=== PATIENT | female | born 1970 | race Caucasian/White ===

== ENCOUNTER → 2019-10-25 11:27 | Outpatient (BNVA) | payer OTHER, SELFPAY | PROVIDERS: Visit Provider Nurse Practitioner | DX: S92.512A Displaced fracture of proximal phalanx of left lesser toe(s), initial encounter for closed fracture (principal); X58.XXXA Exposure to other specified factors, initial encounter | CPT/HCPCS: 73630 ==

== ENCOUNTER 2019-11-01 14:40 | Inpatient (IN) | payer OTHER, SELFPAY ==
[2019-11-01] VITALS (10 sets, daily range): BP systolic 132–162; BP diastolic 95–106; PULSE 86–108; RESP 16–18; TEMP 36.5–36.9; O2SAT 95–98; BMI 30.1
--- NOTE | 2019-11-01 15:13 | ED_ITS ---
HPI - Abdominal Pain General: Chief Complaint: Abdominal Pain Stated Complaint: abd pain, N/V, chills Time Seen by Provider: 11/01/19 15:08 Source: patient Mode of arrival: ambulatory Limitations: no limitations History of Present Illness: HPI narrative: 48-year-old female patient with a history of alcoholic pancreatitis presents to the emergency department with epigastric pain that started early this morning. She tried to manage it at home but the pain was getting worse. She states she has been drinking a little more in the last few days. She drinks about 3 to 4 cans of the hard lemonade. She has associated nausea and vomiting. MD elicited complaint: abdominal pain Pertinent past history: other (Pancreatitis) Onset (ago): hour(s) (8) Pain Consistency: constant Location: Epigastric Severity: severe Quality: stabbing Radiation: none Exacerbating factors: nothing Relieving factors: nothing Associated Symptoms: Reports nausea and vomiting; Denies chills, dysuria and fever(s) Review of Systems General: Reports: 10 or more systems reviewed and unremarkable except in HPI and below Const: Denies: fever(s), chills or body aches Eyes: Denies: change in vision or blurry vision ENMT: Denies: throat pain, enlarged tonsils, odynophagia, hoarseness, mouth pain or swelling of lips/tongue Card: Denies: palpitations, irregular heart rhythm, edema or swelling of feet/ankles Resp: Denies: dyspnea, productive cough or non-productive cough GI: Reports: nausea and vomiting : Denies: flank pain, difficulty voiding, dysuria, urinary frequency, urinary urgency or urinary hesitancy Musc: Denies: neck pain, back pain or extremity swelling Skin/Breast: Denies: rash, pruritus or erythema Neuro: Denies: headache(s), numbness in extremities or weakness in extremities Endo: Denies: polyuria, polydipsia or tired all the time PFSH ED PFSH: Family History (Reviewed 11/01/19 @ 15:17 by Tamika Guardado MD, [facility] [place]) Father Hypertension Stroke Social History (Reviewed 11/01/19 @ 15:17 by Tamika Guardado MD, [facility] [place]) Smoking and tobacco status: never smoked Second hand smoke exposure: No Alcohol intake: current Alcohol intake frequency: 0-2 Drinks per Day Substance/Drug Use: never Lives independently: Yes Household members: spouse and children Housing: House Marital status: service: No Current occupational status: unemployed 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 History of recent travel: No Current gender identity: Female Additional social history: well balanced diet Physical Exam Const: COMMON NORMALS: no acute distress, average body habitus, patient oriented x3, no limitations, healthy appearing, alert and well nourished HENMT: COMMON NORMALS: normocephalic, atraumatic and moist oral mucous membranes HEAD & SCALP: normocephalic and atraumatic Neck/C-Spine: COMMON NORMALS: no meningeal signs and no JVD Chest: COMMONS NORMALS: normal inspection of the chest and normal palpation of entire chest wall Resp: COMMON NORMALS: normal respiratory effort, No retractions, No use of accessory muscles, clear to auscultation bilaterally and percussion normal AUSCULTATION: clear to auscultation bilaterally PERCUSSION: percussion normal Cardio: COMMON NORMALS: no JVD, regular rate, regular rhythm, S1 normal heart sound present, S2 normal heart sound present, No gallops present (Cardio), No clicks present (Cardio), No murmurs present (Cardio), No rub (Cardio) and Peripheral pulses 2+ throughout RATE: regular rate RHYTHM: regular rhythm HEART SOUNDS: S1 normal heart sound present and S2 normal heart sound present PERIPHERAL PULSES: Peripheral pulses 2+ throughout GI: COMMON NORMALS: Normal to inspection, nondistended, normoactive bowel sounds present, Soft to palpation, No hepatosplenomegaly present, no masses and no bruits PALPATION: Yes Soft to palpation, Yes Tenderness to palpation present (GI) Details: other (Epigastric) and Yes No hepatosplenomegaly present : COMMON NORMALS: Yes no CVA tenderness BLADDER/KIDNEY EXAM: Yes no CVA tenderness Back/Pelvis: COMMON NORMALS: no CVA tenderness Extremity: COMMON NORMALS: normal to inspection, full ROM, capillary refill normal, no calf tenderness and no pedal edema Neuro: COMMON NORMALS: patient oriented x3 SENSORIUM/ORIENTATION: Yes alert MENINGEAL SIGNS: Yes no meningeal signs Skin: COMMON NORMALS: no rashes or lesions noted, no wounds, turgor normal, no jaundice, no petechiae and no mottling GENERAL SKIN EXAM: no rashes or lesions noted, turgor normal and dry skin Course Reevaluation(s): Reevaluation #1: Discussed her imaging findings with her as well as her lab findings. She has features suggestive of acute pancreatitis. I advised hospital admission for further evaluation and management. She voiced understanding and is in agreement with the plan. Time: 17:35 Consultations: Consultation #1: Discussed with Dr. Willingham, hospitalist. He kindly accepted the patient to his service. Time: 17:40 Vital Signs: Vital signs: Vital Signs Temperature 97.7 F 11/01/19 14:46 Pulse Rate 94 11/01/19 18:00 Respiratory Rate 16 11/01/19 18:00 Blood Pressure 132/96 11/01/19 18:00 Pulse Oximetry 97 11/01/19 18:00 MDM - Abdominal Pain MDM Narrative: Medical decision making narrative: 48-year-old female patient with alcoholic pancreatitis. At this time it appears to be uncomplicated. She has a history of the same and she said she was off alcohol for a while but then started drinking again. She is admitted to the hospital for further evaluation and management. Differential Diagnosis: Differential diagnosis abdominal pain: Likely abdominal pain, acute appendicitis, diverticulitis and pancreatitis Lab Data: Labs: Lab Results 11/01/19 11/01/19 11/01/19 Range/Units 15:16 15:16 15:16 WBC (4.0-10.0) 10^3/ uL RBC (4.1-5.3) 10^6/u L Hgb (11.5-15.3) g/dL Hct (37.0-47.0) % MCV (81-99) fL MCH (28.0-34.0) pg MCHC (30.0-36.0) g/dL RDW (12.1-15.1) % Plt Count (130-400) 10^3/c mm MPV (7.4-10.4) fL Neut % (Auto) % Lymph % (Auto) % [place] % (Auto) % Eos % (Auto) % Baso % (Auto) % Neut # (Auto) (1.8-7.7) 10^3/u L Lymph # (Auto) (0.8-4.8) 10^3/u L [place] # (Auto) (0.2-0.9) 10^3/u L Eos # (Auto) (0.0-0.8) 10^3/u L Baso # (Auto) (0.0-0.1) 10^3/u L Nucleated RBC % (a uto) % Nucleated RBCs # /100WBC Sodium (136-145) mmol/L Potassium (3.5-5.1) mmol/L Chloride (98-107) mmol/L Carbon Dioxide (22-29) mmol/L Anion Gap (5-19) BUN (6-20) mg/dL Creatinine (0.5-0.9) mg/dL GFR Calculation (90-130) mL/min Glucose (65-115) mg/dL Calculated Osmolal ity (285-295) mOsm/k g Lactate (0.5-2.2) mmol/L Calcium (8.5-10.5) mg/dL Total Bilirubin (0.15-1.2) mg/dL AST (0-32) U/L ALT (0-33) U/L Alkaline Phosphata se (35-105) IU/L C-Reactive Protein (0.0-4.9) mg/L Total Protein (6.6-8.7) g/dL Albumin (3.5-5.2) g/dL Globulin (1.3-4.6) g/dL Lipase (13-60) U/L HCG, Qual Negative (Negative) Urine Color Yellow (Yellow) Urine Appearance Hazy A (CLEAR) Urine pH 7 (5-7) Ur Specific Gravit y 1.015 (1.005-1.030) Urine Protein Neg (Negative) Urine Glucose (UA) Norm (Normal) Urine Ketones 2+ H (Negative) Urine Blood 3+ H (Negative) Urine Nitrate Negative (Negative) Urine Bilirubin Neg (NEGATIVE) Urine Urobilinogen Norm (Negative) mg/dL Ur Leukocyte Lety ase Negative (Negative) Urine RBC 15-25 H (0-2) /hpf Urine WBC 0-4 H (0-5) /hpf Ur Squamous Epith Cells 25-40 H (0-5) Amorphous Sediment Not Reportable Urine Bacteria 1+ H (NONE) Urine Mucus 4+ Urine Opiates Scre en Negative (Negative) ng/mL Ur Barbiturates Sc reen Negative (Negative) ng/mL Ur Phencyclidine S crn Negative (Negative) ng/mL Ur Amphetamines Sc reen Negative (Negative) ng/mL U Benzodiazepines Scrn Negative (Negative) ng/mL Urine Cocaine Scre en Negative (Negative) ng/mL U Marijuana (THC) Screen Negative (Negative) ng/mL 11/01/19 11/01/19 11/01/19 Range/Units 15:31 15:31 15:31 WBC 8.9 (4.0-10.0) 10^3/ uL RBC 4.67 (4.1-5.3) 10^6/u L Hgb 15.7 H (11.5-15.3) g/dL Hct 46.4 (37.0-47.0) % MCV 99.4 H (81-99) fL MCH 33.6 (28.0-34.0) pg MCHC 33.8 (30.0-36.0) g/dL RDW 14.2 (12.1-15.1) % Plt Count 271 (130-400) 10^3/c mm MPV 9.7 (7.4-10.4) fL Neut % (Auto) 91.1 % Lymph % (Auto) 6.0 % [place] % (Auto) 2.6 % Eos % (Auto) 0.0 % Baso % (Auto) 0.2 % Neut # (Auto) 8.07 H (1.8-7.7) 10^3/u L Lymph # (Auto) 0.5 L (0.8-4.8) 10^3/u L [place] # (Auto) 0.2 (0.2-0.9) 10^3/u L Eos # (Auto) 0.0 (0.0-0.8) 10^3/u L Baso # (Auto) 0.0 (0.0-0.1) 10^3/u L Nucleated RBC % (a uto) 0 % Nucleated RBCs # 0.0 /100WBC Sodium 135 L (136-145) mmol/L Potassium 3.5 (3.5-5.1) mmol/L Chloride 97 L (98-107) mmol/L Carbon Dioxide 24 (22-29) mmol/L Anion Gap 17.5 (5-19) BUN 6 (6-20) mg/dL Creatinine 0.7 (0.5-0.9) mg/dL GFR Calculation 88.9 L (90-130) mL/min Glucose 142 H (65-115) mg/dL Calculated Osmolal ity 278 L (285-295) mOsm/k g Lactate 2.8 H (0.5-2.2) mmol/L Calcium 8.6 (8.5-10.5) mg/dL Total Bilirubin 0.7 (0.15-1.2) mg/dL AST 52 H (0-32) U/L ALT 39 H (0-33) U/L Alkaline Phosphata se 119 H (35-105) IU/L C-Reactive Protein 1.0 (0.0-4.9) mg/L Total Protein 8.0 (6.6-8.7) g/dL Albumin 4.6 (3.5-5.2) g/dL Globulin 3.4 (1.3-4.6) g/dL Lipase 722 H (13-60) U/L HCG, Qual (Negative) Urine Color (Yellow) Urine Appearance (CLEAR) Urine pH (5-7) Ur Specific Gravit y (1.005-1.030) Urine Protein (Negative) Urine Glucose (UA) (Normal) Urine Ketones (Negative) Urine Blood (Negative) Urine Nitrate (Negative) Urine Bilirubin (NEGATIVE) Urine Urobilinogen (Negative) mg/dL Ur Leukocyte Lety ase (Negative) Urine RBC (0-2) /hpf Urine WBC (0-5) /hpf Ur Squamous Epith Cells (0-5) Amorphous Sediment Urine Bacteria (NONE) Urine Mucus Urine Opiates Scre en (Negative) ng/mL Ur Barbiturates Sc reen (Negative) ng/mL Ur Phencyclidine S crn (Negative) ng/mL Ur Amphetamines Sc reen (Negative) ng/mL U Benzodiazepines Scrn (Negative) ng/mL Urine Cocaine Scre en (Negative) ng/mL U Marijuana (THC) Screen (Negative) ng/mL Imaging Data ^: CT Abd/Pel: Radiologist's impression: [address] [address] [address] Scan Report Signed Patient: Herminia Del Toro #: [id number] : 1970Acct#:[id number] Age/Sex: 48 / FADM Date: 11/01/19 Loc: ERRoom/Bed: Attending Dr: Ordering Provider/Ordering MD: Tamika Guardado MD, ROD Date of Service: 11/01/19 Procedure(s): CT abdomen pelvis w con* [id number] Accession Number(s): [id number] Report Number: [id number] PROCEDURE INFORMATION: Exam: CT Abdomen And Pelvis With Contrast Exam date and time: 11/01/2019 4:09 PM Age: 48 years old Clinical indication: Nausea and vomiting; Abdominal pain; Generalized; Prior surgery; Surgery type: Tubal; Additional info: Pancreatitis TECHNIQUE: Imaging protocol: Computed tomography of the abdomen and pelvis with intravenous contrast. Radiation optimization: All CT scans at this facility use at least one of these dose optimization techniques: automated exposure control; mA and/or kV adjustment per patient size (includes targeted exams where dose is matched to clinical indication); or iterative reconstruction. Contrast material: OMNI 300; Contrast volume: 95 ml; Contrast route: INTRAVENOUS (IV); COMPARISON: CT abdomen w con* [id number] 04/19/2015 4:[address] abdomen pelvis w con* [id number] 11/23/2014 5:31:18 PM RADIATION DOSE METRICS: Total DLP (mGy-cm): 1346.64 FINDINGS: Liver: Stable hepatic cysts, largest approximately 2 cm. Gallbladder and bile ducts: Unremarkable. No ductal dilation. Pancreas: Edema/inflammation adjacent to the pancreas predominantly along the body and tail the pancreas. No ductal dilatation, pseudocyst or necrosis. Calcifications in the proximal pancreas. Spleen: Normal. No splenomegaly. Adrenals: Normal. No mass. Kidneys and ureters: Normal. No hydronephrosis. Stomach and bowel: No acute findings. No obstruction. No mucosal thickening. Appendix: No evidence of appendicitis. Intraperitoneal space: Minimal fluid in the left pericolic gutter. No pneumoperitoneum. Vasculature: No abdominal aortic aneurysm. Patent portal and splenic veins. Abdominal varices. Lymph nodes: No significant adenopathy. Bladder: Unremarkable as visualized. Reproductive: Unremarkable as visualized. Bones/joints: No acute findings. Soft tissues: Unremarkable. CT/CT abdomen pelvis w con* [id number] IMPRESSION: Acute pancreatitis along with evidence of chronic calcific pancreatitis. Radiation Dose CTDIVOL = (mGy): DLP = 1346.64 (mGy-cm) Dictated By:Orlando Lew MD Signed By:Orlando Lew MDSigned Date/Time:11/01/191644 DD/ 43 Discharge Plan Discharge Prescriptions: No Action No Known Home Medications RF: 0 Coding Level of Care Code ED Power Plant Mechanic for Chg Fwd Exam Comprehensive
[2019-11-01] MEDS: sodium chloride 0.9% 1,000 ML 999 ML IV (15:37)
[2019-11-01] MEDS: ondansetron 2 mg/ML SDV 2 mL 4 MG IVP ×2 (15:38→20:29)
[2019-11-01] MEDS: morphine 4 mg/mL SDV 1 mL 8 MG IVP (15:38)
[2019-11-01 15:42] LABS: Basophils % 0.2 %; Hematocrit 46.4 % (37.0-47.0); Hemoglobin 15.7 g/dL (11.5-15.3); Lymphocytes # 0.5 10^3/uL (0.8-4.8); Mean Corpuscular HGB Conc 33.8 g/dL (30.0-36.0); Mean Corpuscular Hemoglobin 33.6 pg (28.0-34.0); Mean Corpuscular Volume 99.4 fL (81-99); Mean Platelet Volume 9.7 fL (7.4-10.4); Monocytes # 0.2 10^3/uL (0.2-0.9); Monocytes % 2.6 %; Neutrophils # 8.07 10^3/uL (1.8-7.7); Neutrophils % 91.1 %; Nucleated Red Blood Cells % 0 %; Platelet Count 271 10^3/cmm (130-400); Red Blood Count 4.67 10^6/uL (4.1-5.3); Red Cell Distribution Width 14.2 % (12.1-15.1); White Blood Count 8.9 10^3/uL (4.0-10.0)
[2019-11-01 15:55] LABS: HCG Qualitative Urine. Negative (Negative)
[2019-11-01 15:56] LABS: Alanine Aminotransferase 39 U/L (0-33); Albumin Level 4.6 g/dL (3.5-5.2); Alkaline Phosphatase 119 IU/L (35-105); Anion Gap 17.5 (5-19); Aspartate Amino Transferase 52 U/L (0-32); Blood Urea Nitrogen 6 mg/dL (6-20); Calcium 8.6 mg/dL (8.5-10.5); Carbon Dioxide 24 mmol/L (22-29); Chloride 97 mmol/L (98-107); Globulin 3.4 g/dL (1.3-4.6); Glomerular Filtration Rate 88.9 mL/min (90-130); Glucose 142 mg/dL (65-115); Osmolality Calculated 278 mOsm/kg (285-295); Potassium 3.5 mmol/L (3.5-5.1); Sodium 135 mmol/L (136-145); Total Bilirubin 0.7 mg/dL (0.15-1.2)
[2019-11-01 15:57] LABS: Lactate (Lactic Acid level) 2.8 mmol/L (0.5-2.2)
[2019-11-01 15:58] LABS: Add Urine Microscopic? YES; Bilirubin Urine Neg (NEGATIVE); Blood Urine 3+ (Negative); Glucose Urine UA Norm (Normal); Ketones Urine 2+ (Negative); Leukocyte Esterase Urine Negative (Negative); Nitrate Urine Negative (Negative); Protein Urine Neg (Negative); Specific Gravity, Urine 1.015 (1.005-1.030); Urine Appearance Hazy (CLEAR); Urine Color Yellow (Yellow); Urobilinogen Urine Norm (Negative); pH Urine 7 (5-7)
[2019-11-01 16:00] LABS: Amphetamines Screen Urine Negative (Negative); Barbiturates Screen Urine Negative (Negative); Benzodiazepines Screen Urine Negative (Negative); Cocaine Screen Urine Negative (Negative); Opiate Screen Urine Negative (Negative); PCP Screen Urine Negative (Negative); THC Screen Urine Negative (Negative)
[2019-11-01 16:03] LABS: Add Urine Culture? No; Bacteria Urine 1+; Mucus Urine 4+; RBC Urine 15-25 /hpf (0-2); Squamous Epithelial Cell Urine 25-40 (0-5); WBC Urine 0-4 /hpf (0-5)
[2019-11-01 16:03] LABS: Lipase 722 U/L (13-60)
--- NOTE | 2019-11-01 16:07 | CTR_ITS ---
PROCEDURE INFORMATION: Exam: CT Abdomen And Pelvis With Contrast Exam date and time: 11/01/2019 4:09 PM Age: 48 years old Clinical indication: Nausea and vomiting; Abdominal pain; Generalized; Prior surgery; Surgery type: Tubal; Additional info: Pancreatitis TECHNIQUE: Imaging protocol: Computed tomography of the abdomen and pelvis with intravenous contrast. Radiation optimization: All CT scans at this facility use at least one of these dose optimization techniques: automated exposure control; mA and/or kV adjustment per patient size (includes targeted exams where dose is matched to clinical indication); or iterative reconstruction. Contrast material: OMNI 300; Contrast volume: 95 ml; Contrast route: INTRAVENOUS (IV); COMPARISON: CT abdomen w con* [id number] 04/19/2015 4:[address] abdomen pelvis w con* [id number] 11/23/2014 5:31:18 PM RADIATION DOSE METRICS: Total DLP (mGy-cm): 1346.64 FINDINGS: Liver: Stable hepatic cysts, largest approximately 2 cm. Gallbladder and bile ducts: Unremarkable. No ductal dilation. Pancreas: Edema/inflammation adjacent to the pancreas predominantly along the body and tail the pancreas. No ductal dilatation, pseudocyst or necrosis. Calcifications in the proximal pancreas. Spleen: Normal. No splenomegaly. Adrenals: Normal. No mass. Kidneys and ureters: Normal. No hydronephrosis. Stomach and bowel: No acute findings. No obstruction. No mucosal thickening. Appendix: No evidence of appendicitis. Intraperitoneal space: Minimal fluid in the left pericolic gutter. No pneumoperitoneum. Vasculature: No abdominal aortic aneurysm. Patent portal and splenic veins. Abdominal varices. Lymph nodes: No significant adenopathy. Bladder: Unremarkable as visualized. Reproductive: Unremarkable as visualized. Bones/joints: No acute findings. Soft tissues: Unremarkable. CT/CT abdomen pelvis w con* [id number] IMPRESSION: Acute pancreatitis along with evidence of chronic calcific pancreatitis. Radiation Dose CTDIVOL = (mGy): DLP = 1346.64 (mGy-cm)
[2019-11-01] MEDS: iohexol 300 mg/mL 100 mL Btl IV (16:19)
[2019-11-01] MEDS: morphine 4 mg/mL SDV 1 mL IVP ×2 (16:31→19:00)
[2019-11-01] MEDS: sodium chloride 0.9% 1,000 ML 100 ML IV (18:06)
--- NOTE | 2019-11-01 18:25 | PC.NURSE ---
ATTEMPTED REPORT NURSE UNAVAILABLE.
--- NOTE | 2019-11-01 18:37 | PC.NURSE ---
ATTEMPTED REPORT NURSE UNAVAILABLE.
--- NOTE | 2019-11-01 19:12 | PM.HP ---
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 Patient is stating that she drinks 3 to 4 cans of liquor, 1 can contains 500 mL of liquor mixed with lemonade. Patient is stating that her last drink was an afternoon about yesterday, around 4:30 AM she started experiencing abdominal cramps which are getting worse, she has had 4 episode of emesis, abdominal pain was getting worse she decided to come to the hospital for further evaluation. Diagnosis in the ER revealed pancreatitis secondary to alcohol, no gallstones or CBD dilation noticed, I have requested alcohol level. CT abdomen reviewed, labs reviewed. Metabolic acidosis secondary to lactic acidemia. Lipase 722, patient is denying any symptoms of UTI, urinalysis reviewed. Patient is denying any withdrawal symptoms in the past. She is currently denying hallucinations, headache, blurry vision, chest pain, palpitations, diarrhea. Review of Systems Const: Reports: body aches, fatigue and malaise; Denies: fever(s) or chills Eyes: Denies: change in vision ENMT: Denies: throat pain or uvular edema Card: Reports: chest pain; Denies: palpitations or swelling of feet/ankles Resp: Denies: dyspnea GI: Reports: abdominal pain, nausea and vomiting; Denies: diarrhea : Denies: flank pain Musc: Denies: neck pain Skin/Breast: Denies: rash Neuro: Denies: headache(s) Psych: Denies: anxiety or depression Endo: Denies: polyuria Geoff/Lymph: Denies: easy bruising All/Imm: Denies: urticaria Medications/Allergies Home Medications Medication Instructions Recorded Confirmed Last Taken Type No Known Home Medications 11/01/19 11/01/19 Unknown History Allergies Allergy/AdvReac Type Severity Reaction Status Date / Time No Known Allergies Allergy Verified 11/01/19 16:06 PFSH Acute PFSH: Medical History Abnormal Pap smear of cervix Contact dermatitis Fracture of fourth toe, left, closed LGSIL (low grade squamous intraepithelial dysplasia) Screening mammogram, encounter for Well woman exam with routine gynecological exam Surgical History S/P tubal ligation 2010 Family History Father Hypertension Stroke Social History Smoking and tobacco status: never smoked Second hand smoke exposure: No Alcohol intake: current Alcohol intake frequency: 3 or more drinks per day Alcohol use comment: Liquor mixed with lemonade 500 cc/can, 3 to 4 cans a day Substance/Drug Use: never Lives independently: Yes Household members: spouse and children Housing: House Marital status: service: No Current occupational status: unemployed 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 History of recent travel: No Current gender identity: Female Additional social history: well balanced diet Vitals/I&O/Wt Last Vital Signs Temp 97.7 F 11/01/19 14:46 Pulse 94 11/01/19 18:00 Resp 16 11/01/19 19:00 BP 132/96 11/01/19 18:00 Pulse Ox 97 11/01/19 19:00 Weight last 48 hrs Weight 95.254 kg Physical Exam Narrative: EXAM NARRATIVE: Head to toe examination Well-built female currently comfortable in her bed S1, S2 no signs of tachycardia Patient is not complaining of any active abdominal pain Banana bag at the bedside Slight/mild signs of dehydration Deep palpation elicits mag epigastric tenderness otherwise abdomen is soft nontender bowel sounds sluggish, Neurologically nonfocal exam Lungs clear to auscultation Appropriate mood and affect No lower extremity signs of edema gangrene ulcer No alcohol withdrawal noticed Data : 11/01/19 15:31 11/01/19 15:31 A&P Assessment and plan (1) Pancreatitis: Status: Acute (2) Acute dehydration: Status: Acute (3) Acidosis, lactic: Status: Acute Additional A&P Information Alcohol induced pancreatitis History of chronic pancreatitis secondary to alcohol abuse No signs of gallstones or CBD dilation Lipase 722, high alkaline phosphatase with AST 52 ALT 39 consistent with alcoholic hepatitis Nonicteric on clinical exam I do not have PT/PTT however bilirubin is normal I am suspecting her maddrey's discrimination function for alcoholic hepatitis score is not high, I would not use prednisolone Thiamine, folic acid Ativan for PRN use Lactic acidemia causing metabolic acidosis with normal anion gap Some contraction alkalosis due to vomiting causing normal anion gap I am suspecting this is secondary to dehydration due to pancreatitis, No signs of sepsis or inflammation she is afebrile Monitor lactic acid, continue IV fluid resuscitation Hypokalemia: Repleted Check magnesium level and phosphate Full code N.p.o. Counseled on cessation of alcohol to avoid recurrent episodes, DVT prophylaxis Lovenox Attestations Medical Necessity Statement*: Anticipating her stay in the hospital course more than 2 midnights currently n.p.o. for alcoholic pancreatitis needing IV fluids agitation and opioids Time Spent in Patient Care: 45mins Coding Level of Care Code Acute Client Application Support Engineer for Vignesh Oliveros Diagnoses Pancreatitis K85.90 Acute dehydration E86.0 Acidosis, lactic E87.2
[2019-11-01] MEDS: folic acid 1 MG, multivitamin inj 10 ML, thiamine 100 MG in sodium chloride 0.9% 1,000 ML 252.8 MG IV (19:15)
--- NOTE | 2019-11-01 19:19 | PC.NURSE ---
REPORT GIVEN TO ANNE-MARIE Hunter RN
[2019-11-01] MEDS: enoxaparin 40 mg/0.4 mL Syringe SUBCUT (20:11)
[2019-11-01] MEDS: sodium chlor 0.45% +KCl 20 mEq 20 MEQ/1,000 ML BAG 75 MEQ IV (20:14)
[2019-11-01 20:32] LABS: Alcohol Level < 10 mg/dL (0-10)
[2019-11-01] MEDS: HYDROmorphone 1 mg/mL INJ 1 mL IVP (21:28)
[2019-11-02] VITALS: BP 139/85; PULSE 92; RESP 18; TEMP 36.6; O2SAT 96
[2019-11-02 03:34] VITALS: RESP 18
[2019-11-02] MEDS: HYDROmorphone 1 mg/mL INJ 1 mL IVP ×2 (03:34→09:44)
[2019-11-02 03:43] LABS: Basophils % 0.1 %; Hematocrit 41.4 % (37.0-47.0); Hemoglobin 14.3 g/dL (11.5-15.3); Lymphocytes # 0.9 10^3/uL (0.8-4.8); Lymphocytes % 8.9 %; Mean Corpuscular HGB Conc 34.5 g/dL (30.0-36.0); Mean Corpuscular Volume 101.5 fL (81-99); Monocytes # 0.4 10^3/uL (0.2-0.9); Monocytes % 3.6 %; Neutrophils # 8.73 10^3/uL (1.8-7.7); Neutrophils % 87.1 %; Nucleated Red Blood Cells % 0 %; Platelet Count 197 10^3/cmm (130-400); Red Blood Count 4.08 10^6/uL (4.1-5.3); Red Cell Distribution Width 14.4 % (12.1-15.1)
[2019-11-02 03:53] VITALS: BP 115/76; PULSE 94; RESP 18; TEMP 37.1; O2SAT 95
[2019-11-02 04:05] LABS: Alanine Aminotransferase 27 U/L (0-33); Albumin Level 3.6 g/dL (3.5-5.2); Alkaline Phosphatase 96 IU/L (35-105); Anion Gap 12.2 (5-19); Aspartate Amino Transferase 29 U/L (0-32); Blood Urea Nitrogen 5 mg/dL (6-20); Calcium 7.6 mg/dL (8.5-10.5); Carbon Dioxide 23 mmol/L (22-29); Chloride 100 mmol/L (98-107); Globulin 2.8 g/dL (1.3-4.6); Glomerular Filtration Rate 131.1 mL/min (90-130); Glucose 128 mg/dL (65-115); Osmolality Calculated 271 mOsm/kg (285-295); Potassium 3.2 mmol/L (3.5-5.1); Sodium 132 mmol/L (136-145); Total Bilirubin 0.6 mg/dL (0.15-1.2); Total Protein 6.4 g/dL (6.6-8.7)
[2019-11-02 04:13] LABS: Magnesium 1.9 mg/dL (1.7-2.3); Phosphorus 2.3 mg/dL (2.5-4.5)
[2019-11-02 04:34] LABS: Lipase 743 U/L (13-60)
[2019-11-02 07:33] VITALS: BP 146/94; PULSE 116; RESP 17; TEMP 37.4; O2SAT 96
[2019-11-02] MEDS: ondansetron 2 mg/ML SDV 2 mL 4 MG IVP (08:26)
[2019-11-02] MEDS: folic acid 1 mg Tablet PO (08:27)
[2019-11-02] MEDS: sodium chlor 0.45% +KCl 20 mEq 20 MEQ/1,000 ML BAG 75 MEQ IV (08:40)
[2019-11-02 09:44] VITALS: RESP 20; O2SAT 96
--- NOTE | 2019-11-02 11:06 | PC.CHAP ---
Pastoral Care Encounter/Spiritual Assessment Type of Contact [] Declined jailer/training officer visit [] Patient/Family/Request visit [] Outpatient visit [] Follow-up visit [] Physician referral [] Code/Alert [x] Routine visit [] Staff referral [] Actively dying [] Patient sleeping [] Family support [] [] Out of room [] Palliative care [] [] Receiving care in room [] Pre-surgical visit [] Trauma [] Long length of stay [] ICU visit [] Other: Relational/Emotional Strength [x] Patient feels connected with others/family/visitors/staff [] Distress [] Loneliness/isolation [] Abandonment Spirituality of Patient [x] Person of Marianne [] Attends Restorationist of their Marianne [x] Believes in Prayer [] Reads Bible or Roman Catholic materials [x] There are Spiritual issues to be addressed Plastic Tile Layer Interventions [x] Prayer [x] Active listening [x] Non-anxious presence [x] Spiritual/emotional support [] Crisis/trauma care [] Spiritual counseling [] Bereavement support [] Provided bereavement packet [] Provided Bible/devotional materials [] Provided toy/stuffed animal, coloring book to patient or family member [] Provided Communion [] Anointing/Martin [] Salvation [x] Completed spiritual assessment [] Other: Impact on Illness or Injury [] Angry [] Fearful [] Anxious [] Often cries [] Exhaustion [] Unable to work [] Unable to attend caodaism [] Unable to walk/stand [] Unable to read [] Unable to drive [] Unable to eat/drink [] Unable to sleep [] Unable to be with family [] Patient intubated [x] Other: Summary Patient professed her marianne in the Diet TVs. 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 Time spent with patient 10 minutes
--- NOTE | 2019-11-02 11:08 | P.DS_ITS ---
Discharge Providers Date of Admission: 11/01/19 17:46 Date of Discharge: November 02, 2019 Attending Provider at Admission: Wellington Bridges MD Attending Provider at Discharge: Wellington Bridges MD Diagnoses at Discharge Discharge Diagnosis (1) Pancreatitis: Status: Acute (2) Acute dehydration: Status: Acute (3) Acidosis, lactic: Status: Acute (4) Alcohol use disorder, mild, abuse: Status: Acute (5) Hypokalemia: Status: Acute Reason for Visit Reason for Visit: abd pain Hospital Course Discharge Summary: Patient with alcohol use disorder presented with acute abdominal pain and diagnosed with acute on chronic pancreatitis. Patient was treated with IV fluids and analgesics and improved and this morning reports feeling much better and wants to go home. We have discussed that it is important to have appropriate hydration but patient does not want to stay in the hospital anymore and adamantly wants to go home. She reports that her residential treatment staff will need to leave by 3:00 therefore she absolutely needs to get back home by that time. Patient reports that she was not drinking alcohol since 2016 when she had similar episode of pancreatitis. Reports that approximately 3 to 4 months ago she started drinking [employer] lemonade. She drinks approximately 3-4 drinks per day. She denies ever having withdrawal symptoms and denies it during my evaluation. She is asking if we can give her Dilaudid to take as needed and 30 tablets of 2 mg Dilaudid every 4 hours as needed will be prescribed. Patient will follow up with primary care physician within next 4 to 7 days. We will give 40 mEq of potassium prior to discharge. Patient does not want to wait for [facility]. Patient reports that she will drink large amount of fluids including Gatorade. She denies nausea. She tolerated clear liquid diet with her breakfast well. We have discussed that potentially patient's pancreatitis may significantly worsen and she needs to immediately present back if her condition worsens. Patient voiced understanding. Physical Exam Const: COMMON NORMALS: no acute distress and patient oriented x3 Resp: COMMON NORMALS: normal respiratory effort and clear to auscultation bilaterally AUSCULTATION: clear to auscultation bilaterally Cardio: COMMON NORMALS: regular rate, regular rhythm and S2 normal heart sound present RATE: regular rate RHYTHM: regular rhythm HEART SOUNDS: S2 normal heart sound present OTHER: No lower extremity edema GI: COMMON NORMALS: Normal to inspection, nondistended, normoactive bowel sounds present and Soft to palpation PALPATION: Yes Soft to palpation OTHER: Very minimal tenderness at the epigastric area. Neuro: COMMON NORMALS: patient oriented x3 and no focal motor deficits Discharge Data Data Completed and Pending: Completed Studies During Hospitalization Category Date Time Status CT abdomen pelvis w con* [id number] Stat Cat Scan 11/01/19 16:07 Completed Labs from last 24 hours 11/02/19 11/02/19 11/02/19 02:53 02:53 02:53 WBC RBC Hgb Hct MCV MCH MCHC RDW Plt Count MPV Neut % (Auto) Lymph % (Auto) Garrard % (Auto) Eos % (Auto) Baso % (Auto) Neut # (Auto) Lymph # (Auto) Garrard # (Auto) Eos # (Auto) Baso # (Auto) Nucleated RBC % (a uto) Nucleated RBCs # Sodium 132 L Potassium 3.2 L Chloride 100 Carbon Dioxide 23 Anion Gap 12.2 BUN 5 L Creatinine 0.5 GFR Calculation 131.1 H Glucose 128 H Calculated Osmolal ity 271 L Lactate 1.0 Calcium 7.6 L Phosphorus 2.3 L Magnesium 1.9 Total Bilirubin 0.6 AST 29 ALT 27 Alkaline Phosphata se 96 C-Reactive Protein Total Protein 6.4 L Albumin 3.6 Globulin 2.8 Lipase HCG, Qual Urine Color Urine Appearance Urine pH Ur Specific Gravit y Urine Protein Urine Glucose (UA) Urine Ketones Urine Blood Urine Nitrate Urine Bilirubin Urine Urobilinogen Ur Leukocyte Lety ase Urine RBC Urine WBC Ur Squamous Epith Cells Amorphous Sediment Urine Bacteria Urine Mucus Urine Opiates Scre en Ur Barbiturates Sc reen Ur Phencyclidine S crn Ur Amphetamines Sc reen U Benzodiazepines Scrn Urine Cocaine Scre en U Marijuana (THC) Screen Ethyl Alcohol 11/02/19 11/02/19 11/01/19 02:53 02:53 15:31 WBC 10.0 RBC 4.08 L Hgb 14.3 Hct 41.4 MCV 101.5 H MCH 35.0 H MCHC 34.5 RDW 14.4 Plt Count 197 MPV 10.0 Neut % (Auto) 87.1 Lymph % (Auto) 8.9 Garrard % (Auto) 3.6 Eos % (Auto) 0.0 Baso % (Auto) 0.1 Neut # (Auto) 8.73 H Lymph # (Auto) 0.9 Garrard # (Auto) 0.4 Eos # (Auto) 0.0 Baso # (Auto) 0.0 Nucleated RBC % (a uto) 0 Nucleated RBCs # 0.0 Sodium Potassium Chloride Carbon Dioxide Anion Gap BUN Creatinine GFR Calculation Glucose Calculated Osmolal ity Lactate Calcium Phosphorus Magnesium Total Bilirubin AST ALT Alkaline Phosphata se C-Reactive Protein Total Protein Albumin Globulin Lipase 743 H HCG, Qual Urine Color Urine Appearance Urine pH Ur Specific Gravit y Urine Protein Urine Glucose (UA) Urine Ketones Urine Blood Urine Nitrate Urine Bilirubin Urine Urobilinogen Ur Leukocyte Lety ase Urine RBC Urine WBC Ur Squamous Epith Cells Amorphous Sediment Urine Bacteria Urine Mucus Urine Opiates Scre en Ur Barbiturates Sc reen Ur Phencyclidine S crn Ur Amphetamines Sc reen U Benzodiazepines Scrn Urine Cocaine Scre en U Marijuana (THC) Screen Ethyl Alcohol < 10 11/01/19 11/01/19 11/01/19 15:31 15:31 15:31 WBC 8.9 RBC 4.67 Hgb 15.7 H Hct 46.4 MCV 99.4 H MCH 33.6 MCHC 33.8 RDW 14.2 Plt Count 271 MPV 9.7 Neut % (Auto) 91.1 Lymph % (Auto) 6.0 Garrard % (Auto) 2.6 Eos % (Auto) 0.0 Baso % (Auto) 0.2 Neut # (Auto) 8.07 H Lymph # (Auto) 0.5 L Garrard # (Auto) 0.2 Eos # (Auto) 0.0 Baso # (Auto) 0.0 Nucleated RBC % (a uto) 0 Nucleated RBCs # 0.0 Sodium 135 L Potassium 3.5 Chloride 97 L Carbon Dioxide 24 Anion Gap 17.5 BUN 6 Creatinine 0.7 GFR Calculation 88.9 L Glucose 142 H Calculated Osmolal ity 278 L Lactate 2.8 H Calcium 8.6 Phosphorus Magnesium Total Bilirubin 0.7 AST 52 H ALT 39 H Alkaline Phosphata se 119 H C-Reactive Protein 1.0 Total Protein 8.0 Albumin 4.6 Globulin 3.4 Lipase 722 H HCG, Qual Urine Color Urine Appearance Urine pH Ur Specific Gravit y Urine Protein Urine Glucose (UA) Urine Ketones Urine Blood Urine Nitrate Urine Bilirubin Urine Urobilinogen Ur Leukocyte Lety ase Urine RBC Urine WBC Ur Squamous Epith Cells Amorphous Sediment Urine Bacteria Urine Mucus Urine Opiates Scre en Ur Barbiturates Sc reen Ur Phencyclidine S crn Ur Amphetamines Sc reen U Benzodiazepines Scrn Urine Cocaine Scre en U Marijuana (THC) Screen Ethyl Alcohol 11/01/19 11/01/19 11/01/19 15:16 15:16 15:16 WBC RBC Hgb Hct MCV MCH MCHC RDW Plt Count MPV Neut % (Auto) Lymph % (Auto) Garrard % (Auto) Eos % (Auto) Baso % (Auto) Neut # (Auto) Lymph # (Auto) Garrard # (Auto) Eos # (Auto) Baso # (Auto) Nucleated RBC % (a uto) Nucleated RBCs # Sodium Potassium Chloride Carbon Dioxide Anion Gap BUN Creatinine GFR Calculation Glucose Calculated Osmolal ity Lactate Calcium Phosphorus Magnesium Total Bilirubin AST ALT Alkaline Phosphata se C-Reactive Protein Total Protein Albumin Globulin Lipase HCG, Qual Negative Urine Color Yellow Urine Appearance Hazy A Urine pH 7 Ur Specific Gravit y 1.015 Urine Protein Neg Urine Glucose (UA) Norm Urine Ketones 2+ H Urine Blood 3+ H Urine Nitrate Negative Urine Bilirubin Neg Urine Urobilinogen Norm Ur Leukocyte Lety ase Negative Urine RBC 15-25 H Urine WBC 0-4 H Ur Squamous Epith Cells 25-40 H Amorphous Sediment Not Reportable Urine Bacteria 1+ H Urine Mucus 4+ Urine Opiates Scre en Negative Ur Barbiturates Sc reen Negative Ur Phencyclidine S crn Negative Ur Amphetamines Sc reen Negative U Benzodiazepines Scrn Negative Urine Cocaine Scre en Negative U Marijuana (THC) Screen Negative Ethyl Alcohol Vitals: Last Vital Signs Temp 99.4 F 11/02/19 07:33 Pulse 116 H 11/02/19 07:33 Resp 20 H 11/02/19 09:44 BP 146/94 11/02/19 07:33 Pulse Ox 96 11/02/19 09:44 Discharge Plan Discharge Patient Disposition: Home Condition: Stable Prescriptions: New Dilaudid 2 mg tablet 2 mg PO Q4H PRN (Reason: pain) Qty: 30 RF: 0 multivitamin Capsule 1 cap PO DAILY Qty: 30 RF: 0 thiamine HCl (vitamin B1) 100 mg tablet 100 mg PO DAILY Qty: 30 RF: 0 folic acid 1 mg Tablet 1 mg PO DAILY Qty: 30 RF: 0 No Action No Known Home Medications RF: 0 Discharge Orders: Discharge Order (Routine); Ordered 11/02/19 Ordered By: Wellington Bridges Discharge Diet: Advance as tolerated Discharge Activity: Increase activity as tolerated Activity Restrictions/Additional Instructions: Please call your doctor or present to emergency department if your condition worsens or you develop diarrhea, lightheadedness, fatigue or see blood in your stool or black stool. Since you do not want to stay for IV hydration please make sure you hydrate yourself with Gatorade and advance diet as tolerated. Please follow-up with your primary care physician within next 4 to [address] or operate any machinery while taking Dilaudid. Please try to limit as much as possible. You can take up to 2 g of [id number] Tylenol as needed. 500 mg every 6 hours. 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
[2019-11-02 11:37] VITALS: BP 126/90; PULSE 113; RESP 17; TEMP 37.1; O2SAT 97
[2019-11-02] MEDS: lactated ringers 1,000 ML 75 ML IV (11:37)
[2019-11-02] MEDS: potassium chloride ER 10 mEq Tablet 40 MEQ PO (11:38)
== END 2019-11-02 12:45 | disposition home or self-care (01) | DRG 439 ==
LOC: ER 18:27 → MEDSURG 18:48
PROVIDERS: Family Medicine; Internal Medicine; Admitting Provider Internal Medicine; Visit Provider Internal Medicine
DX: K85.20 Alcohol induced acute pancreatitis without necrosis or infection (principal); E87.2 Acidosis; E86.0 Dehydration; K70.10 Alcoholic hepatitis without ascites; E87.6 Hypokalemia; F10.10 Alcohol abuse, uncomplicated
CPT/HCPCS: 12345; 36415; 74177; 80053; 80306; 80307; 81001; 81003; 81025; 83605; 83690; 83735; 84100; 85025; 86140; 96372; 96375; 99283; J1170; J1650; J2270; J2405; J3411; J3490; J7030; Q9967

== ENCOUNTER → 2019-11-07 16:47 | Outpatient (BNVA) | payer OTHER, SELFPAY | PROVIDERS: Visit Provider Nurse Practitioner Family | DX: K85.90 Acute pancreatitis without necrosis or infection, unspecified (principal) | CPT/HCPCS: 80053; 85025 ==

== ENCOUNTER → 2022-02-19 11:41 | Outpatient (BNVA) | payer BC, MEDICAID, SELFPAY | PROVIDERS: Visit Provider Family Medicine | DX: R68.82 Decreased libido (principal) | CPT/HCPCS: 82672; 84403 ==

== ENCOUNTER → 2022-08-03 11:00 | Outpatient (BNVA) | payer BC, MEDICAID, SELFPAY | PROVIDERS: PCP Family Medicine; Visit Provider Family Medicine | DX: I10 Essential (primary) hypertension (principal) | CPT/HCPCS: 80053; 80061; 84443; 85025 ==

== ENCOUNTER → 2024-06-08 09:58 | Outpatient (BNVA) | payer BC, MEDICAID, SELFPAY | PROVIDERS: PCP Family Medicine; Visit Provider Family Medicine | DX: I10 Essential (primary) hypertension (principal) | CPT/HCPCS: 80053; 80061; 84439; 84443; 85025 ==

== ENCOUNTER 2024-07-25 08:46 | Outpatient (CLI) | payer BC, MEDICAID, SELFPAY ==
--- NOTE | 2024-07-25 09:00 | MM_ITS ---
WS: [id number] BILATERAL 3D TOMOSYNTHESIS DIGITAL SCREENING MAMMOGRAPHY WITH CAD CLINICAL INFORMATION: screening HISTORY: Screening mammogram. No current complaints. COMPARISON: Baseline TECHNIQUE: Bilateral CC and MLO views. FINDINGS: The breasts are composed of heterogeneous fibroglandular density tissue, which can limit the detection of small underlying mass lesions. No suspicious mass, asymmetry, calcifications, or architectural distortion. No evidence of malignancy. There are few incidental punctate calcifications. MM/MM [facility] tomosynthesis 99100 IMPRESSION: DENSITY: The breasts are heterogeneously dense, which may obscure small masses. BI-RADS: 2 - Benign FOLLOW UP: 1 Year Follow-up Recommend return to annual screening mammography.
== END 2024-07-25 08:47 | disposition home or self-care (01) ==
PROVIDERS: PCP Family Medicine; Visit Provider Family Medicine
DX: Z12.31 Encounter for screening mammogram for malignant neoplasm of breast (principal); R92.333 Mammographic heterogeneous density, bilateral breasts; R92.1 Mammographic calcification found on diagnostic imaging of breast
CPT/HCPCS: 77063; 77067

== ENCOUNTER 2025-01-16 08:39 | Day surgery (SDC) | payer BC, MEDICAID, SELFPAY ==
--- NOTE | 2025-01-16 09:01 | ECG_ITS ---
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
[2025-01-16 09:25] VITALS: BP 117/91; PULSE 90; RESP 18; TEMP 36.8; O2SAT 97; BMI 30.9
--- NOTE | 2025-01-16 09:47 | PM.MISC ---
Miscellaneous Note Purpose of Documentation: A fib on EKG Note: Patient's EKG revealed new-onset a fib. Rate < 120, asymptomatic and BP stable. Since new onset cardiac condition will defer colonoscopy and allow patient PCP to initiate further investigation of a fib. Educated patient that if she feels any symptoms to include, palpitations, dizziness, lightheadedness, overall malaise/fatigue to go to ER. She statess she has a pulse ox at home and can monitor her rate there as well. Told if rate is creeping over 120s, she should go to ER.
[2025-01-16 09:56] LABS: OR HCG Qualitative Urine Negative (Negative)
--- NOTE | 2025-01-16 10:11 | PM.MISC ---
Miscellaneous Note Note: New onset afib. Stable. Asymptomatic. Referring to cardiology and rescheduling colonoscopy. Office will make arrangements.
== END 2025-01-16 09:57 | disposition home or self-care (01) ==
PROVIDERS: Anesthesiology; PCP Family Medicine; Visit Provider Student in an Organized Health Care Education/Training Program
PROC: 0DJD8ZZ Inspection of Lower Intestinal Tract, Via Natural or Artificial Opening Endoscopic (ICD-10-PCS; CPT 45378; principal; 2025-01-16 10:15)
DX: Z53.8 Procedure and treatment not carried out for other reasons (principal)
CPT/HCPCS: 81025; 93005

== ENCOUNTER 2025-03-19 08:19 | Outpatient (CLI) | payer BC, MEDICAID, SELFPAY ==
--- NOTE | 2025-03-19 08:30 | USCV_ITS ---
Herminia Del Toro Age: 54 Gender: F : 1970 Exam Date: 03/19/2025 08:42 Ordering Phys: Bulmaro Myles M.D ([email or web address]) Technologist: [place] [facility] [place]: cp sob BP: 190 / 80 HR: 83 Rhythm: Sinus Technical Quality: Adequate MEASUREMENTS (Male / Female) Normal Values 2D ECHO LV Diastolic Diameter PLAX 4.2 cm 4.2 - 5.9 / 3.9 - 5.3 cm IVS Diastolic Thickness 1.4 cm 0.6 - 1.0 / 0.6 - 0.9 cm IVS Systolic Thickness 1.9 cm LVPW Diastolic Thickness 1.3 cm 0.6 - 1.0 / 0.6 - 0.9 cm LVPW Systolic Thickness 1.9 cm LVOT Diameter 1.9 cm LV Ejection Fraction 2D Teich 71.9 % LV Ejection Fraction MOD 4C 58.3 % LV Ejection Fraction MOD 2C 67.7 % LV Ejection Fraction 2C AL 68.8 % LA Diameter 4.1 cm RA Systolic Volume 4C AL 41.4 ml RA Systolic Volume 4C MOD 41.3 ml Aorta at Sinotubular Diameter 2.8 cm M-MODE LA Ao Ratio MM 1.4 AV Cusp Separation MM 2.5 cm DOPPLER AV Peak Velocity 102.0 cm/s LVOT Peak Velocity 74.0 cm/s AV Area Cont Eq vti 2.3 cm squared AV Area Cont Eq pk 2.1 cm squared MV Peak Velocity 99.0 cm/s MV Area PHT 5.9 cm squared Mitral E to A Ratio 1.4 TV Peak Velocity 211.5 cm/s TR Peak Velocity 256.0 cm/s TR Peak Gradient 26.2 mmHg TV Peak E Velocity 80.0 cm/s PV Peak Velocity 2.0 cm/s FINDINGS Left Ventricle Normal left ventricular size, systolic function and wall thickness, with no regional wall motion abnormalities. Left ventricular ejection fraction is estimated at 60 %. Grade I/IV diastolic dysfunction (abnormal relaxation filling pattern), normal to mildly elevated filling pressures. In the presence of atrial fibrillation diastolic function cannot be assessed accurately. Right Ventricle Normal right ventricular size and systolic function. Right Atrium Normal right atrial size. Left Atrium Moderately increased left atrial size. IA Septum Normal appearance of the interatrial septum. Mitral Valve Mildly thickened mitral valve. No mitral valve stenosis. Mild mitral valve regurgitation. Aortic Valve Mild aortic valve calcification. No aortic valve stenosis. Trace aortic valve regurgitation. Tricuspid Valve Normal tricuspid valve structure. No tricuspid valve stenosis or regurgitation. Normal pulmonary pressure. Pulmonic Valve Normal pulmonic valve structure. No pulmonic valve stenosis or regurgitation. Pericardium No pericardial effusion. Aorta Normal diameter of the aortic root and ascending thoracic aorta. IVC Normal IVC diameter. CONCLUSIONS Normal left ventricular size, systolic function and wall thickness, with no regional wall motion abnormalities. Left ventricular ejection fraction is estimated at 60 %. Grade I/IV diastolic dysfunction (abnormal relaxation filling pattern), normal to mildly elevated filling pressures. In the presence of atrial fibrillation diastolic function cannot be assessed accurately. Moderately increased left atrial size. Mildly thickened mitral valve. No mitral valve stenosis. Mild mitral valve regurgitation. There is no pericardial effusion. Right atrial pressure is around 5 mm of mercury. Eliceo Torres MD (Electronically Signed) Final Date: 28 March 2025 21:54 S
== END 2025-03-19 08:20 | disposition home or self-care (01) ==
LOC: RAD 08:19
PROVIDERS: PCP Family Medicine; Visit Provider Internal Medicine
DX: R07.9 Chest pain, unspecified (principal); R06.02 Shortness of breath; R93.1 Abnormal findings on diagnostic imaging of heart and coronary circulation; I48.91 Unspecified atrial fibrillation; I51.7 Cardiomegaly; I34.0 Nonrheumatic mitral (valve) insufficiency; I35.8 Other nonrheumatic aortic valve disorders
CPT/HCPCS: 93306